=== PATIENT | female | born 1985 | race Caucasian/White ===

== ENCOUNTER 2018-08-14 09:48 | Day surgery (SDC) | payer BC ==
[2018-08-11 08:58] LABS: MICROSCOPIC NOT IND
[2018-08-11 09:04] LABS: BASOPHILS # (AUTO) 0.03 x10^3/uL (0-0.1); BASOPHILS % (AUTO) 0 % (0-1); EOSINOPHILS % (AUTO) 1 % (1-7); LYMPHOCYTES # (AUTO) 2.44 x10^3/uL (1-3.4); LYMPHOCYTES % (AUTO) 29 % (22-44); MD NO; MEAN CORPUSCULAR HEMOGLOBIN 30.5 pg (27.0-34.8); MEAN CORPUSCULAR VOLUME 89.6 fL (80-100); MEAN PLATELET VOLUME 7.8 fL (7.4-10.4); MONOCYTES # (AUTO) 0.34 x10^3/uL (0.2-0.8); MONOCYTES % (AUTO) 4 % (2-9); NEUTROPHILS # (AUTO) 5.44 x10^3/uL (1.8-6.8); NEUTROPHILS % (AUTO) 65 % (42-75); PLATELET COUNT 285 x10^3/uL (130-400); RED BLOOD COUNT 4.54 x10^6/uL (3.82-5.3); RED CELL DISTRIBUTION WIDTH 14.5 % (9.6-15.2)
[2018-08-11 09:17] LABS: CULTURE INDICATED? NO
[~2018-08-14] VITALS: Ht 162.6 cm; Wt 56.9 kg
[~2018-08-14 09:48] MED LIST: BIOT25005 PO; BUPIVACAINE/PF 0.25% ONE; BUTA1CAP57 PO; CEFD300C37 PO; EPINEPHRINE 1 MG/ML, 1ML ONE; KETO30VI27 IV; LEVO75TA PO; METH500T97 PO; NORE1TAB25 PO; OXYC20TA42 PO; OXYC5CAP2 PO; OXYC5TAB3 PO; PANT40TA3 PO; POLY17PO5 PO; PROM25TA10 PO
[2018-08-14 10:29] VITALS: BP 116/83
[2018-08-14] MEDS ORDERED: ACETAMINOPHEN 500 MG TABLET PO ONE (10:30)
[2018-08-14] MEDS ORDERED: GABAPENTIN 300 MG CAPSULE PO ONE (10:30)
[2018-08-14] MEDS ORDERED: FENTANYL PF 250 MCG/5ML ONE (12:11)
[2018-08-14] MEDS ORDERED: MIDAZOLAM 1 MG/ML, 2ML ONE (12:11)
[2018-08-14] MEDS ORDERED: LIDOCAINE-MPF 2% ,5ML ONE (12:12)
[2018-08-14] MEDS ORDERED: PROPOFOL 10 MG/ML, 20ML ONE (12:12)
[2018-08-14] MEDS ORDERED: ROCURONIUM 10MG/ML,5ML ONE (12:13)
[2018-08-14] MEDS ORDERED: HYDROmorphone 2 MG/ML, 1ML IVPush PRN (13:00)
[2018-08-14] MEDS ORDERED: OXYcodone 5 MG/5 ML ORAL.SOL UDC PO PRN (13:00)
[2018-08-14] MEDS ORDERED: HALOPERIDOL 5 MG/ML IV PRN (13:00)
[2018-08-14] MEDS ORDERED: PROMETHAZINE 25 MG/ML, 1ML IV PRN (13:00)
[2018-08-14] MEDS ORDERED: LORazepam 2 MG/ML, 1ML IVPush PRN (13:00)
[2018-08-14] MEDS ORDERED: MEPERIDINE/PF 25MG/0.5ML IVPush PRN (13:00)
[2018-08-14] MEDS ORDERED: hydrALAzine 20 MG/ML, 1ML IV PRN (13:00)
[2018-08-14] MEDS ORDERED: ONDANSETRON 2MG/ML, 2ML ONE (13:11)
[2018-08-14] MEDS ORDERED: CEFOTETAN PMX 1GM/50ML 50 ML ONE (13:11)
[2018-08-14] MEDS ORDERED: DEXAMETHASONE 4 MG/ML, 1ML ONE (13:11)
[2018-08-14] MEDS: FENTANYL PF 100 MCG/2ML IV PRN ×2 (13:55→14:03)
[2018-08-14] MEDS ORDERED: FENTANYL PF 100 MCG/2ML ONE (13:55)
[2018-08-14] MEDS ORDERED: OXYcodone 5 MG/5 ML ORAL.SOL UDC ONE (13:55)
[2018-08-14] MEDS ORDERED: LORazepam 2 MG/ML, 1ML ONE (14:02)
[2018-08-14] MEDS ORDERED: LACTATED RINGERS 1,000 ML IV SCH (15:33)
== END 2018-08-14 18:05 | disposition home or self-care (01) ==
LOC: OUT 09:48
PROVIDERS: ATTEND Obstetrics & Gynecology
DX: Z30.2 Encounter for sterilization (principal); E03.9 Hypothyroidism, unspecified; G43.909 Migraine, unspecified, not intractable, without status migrainosus; Z98.890 Other specified postprocedural states; Z88.8 Allergy status to other drugs, medicaments and biological substances; Z79.01 Long term (current) use of anticoagulants; Z79.899 Other long term (current) drug therapy
CPT/HCPCS: 36415; 58670; 81003; 84702; 85025; 88302; J0171; J1100; J2060; J2250; J2405; J2704; J3010; J3490; J7120

== ENCOUNTER → 2020-08-12 | Outpatient (CLI) | payer BC ==
[~2020-08-12] MED LIST changes: -BUPIVACAINE/PF 0.25% ONE; -EPINEPHRINE 1 MG/ML, 1ML ONE; +LACT1CAP35 PO
[2020-08-12 14:57] LABS: MICROSCOPIC NOT IND
[2020-08-12 15:00] LABS: BASOPHILS % (AUTO) 0 % (0-1); EOSINOPHILS % (AUTO) 1 % (1-7); LYMPHOCYTES % (AUTO) 25 % (22-44); MEAN CORPUSCULAR HEMOGLOBIN 28.8 pg (27.0-34.8); MEAN CORPUSCULAR HGB CONC 33.1 g/dL (32.4-35.8); MEAN PLATELET VOLUME 7.9 fL (7.4-10.4); MONOCYTES % (AUTO) 4 % (2-9); NEUTROPHILS % (AUTO) 71 % (42-75); PLATELET COUNT 297 x10^3/uL (130-400); RED BLOOD COUNT 4.32 x10^6/uL (3.82-5.3); RED CELL DISTRIBUTION WIDTH 15.1 % (9.6-15.2)
[2020-08-12 15:02] LABS: MD NO
[2020-08-12 15:10] LABS: ANION GAP 6 mmol/L (5-15); CALCIUM 9.2 mg/dL (8.5-10.1); CHLORIDE 107 mmol/L (98-107)
[2020-08-12 15:15] LABS: CREATININE 0.94 mg/dL (0.55-1.02)
== END | disposition home or self-care (01) ==
LOC: STAR 13:43
PROVIDERS: ATTEND Obstetrics & Gynecology
DX: Z01.812 Encounter for preprocedural laboratory examination (principal); Z20.828 Contact with and (suspected) exposure to other viral communicable diseases; N80.0 Endometriosis of uterus; R10.2 Pelvic and perineal pain; N92.0 Excessive and frequent menstruation with regular cycle
CPT/HCPCS: 80048; 81003; 84702; 85025; 87635

== ENCOUNTER 2020-08-18 08:51 | Day surgery (SDC) | payer BC ==
[~2020-08-18] VITALS: Ht 162.6 cm; Wt 59.1 kg
[~2020-08-18 08:51] MED LIST changes: -OXYC5TAB3 PO; +OXYC5TAB98 PO
[2020-08-18] MEDS ORDERED: CHLORHEXIDINE 15 ML UDC MM STA (09:13)
[2020-08-18] MEDS ORDERED: ACETAMINOPHEN 500 MG TABLET PO ONE (09:30)
[2020-08-18] MEDS ORDERED: LACTATED RINGERS 1,000 ML IV SCH (09:30)
[2020-08-18] MEDS ORDERED: GABAPENTIN 300 MG CAPSULE PO ONE (09:30)
[2020-08-18 09:36] VITALS: BP 121/75
[2020-08-18] MEDS ORDERED: BUPIVACAINE/PF 0.25% ONE (10:05)
[2020-08-18] MEDS ORDERED: FENTANYL PF 250 MCG/5ML ONE (10:12)
[2020-08-18] MEDS ORDERED: MIDAZOLAM 1 MG/ML, 2ML ONE (10:12)
[2020-08-18 10:16] LABS: HCG UR SG 1.009 (1.003-1.030)
[2020-08-18] MEDS ORDERED: PROPOFOL 100 ML ONE (10:23)
[2020-08-18] MEDS ORDERED: DEXAMETHASONE 4 MG/ML, 1ML ONE (10:25)
[2020-08-18] MEDS ORDERED: PROPOFOL 10 MG/ML, 20ML ONE (11:19)
[2020-08-18] MEDS ORDERED: ROCURONIUM 10MG/ML,5ML ONE (11:19)
[2020-08-18] MEDS ORDERED: CEFAZOLIN 1,000 MG ONE (11:19)
[2020-08-18] MEDS ORDERED: SUCCINYLCHOLINE 20 MG/ML, 10ML ONE (11:19)
[2020-08-18] MEDS ORDERED: GLYCOPYRROLATE 0.2MG/1ML, 5ML ONE ×2 (11:19)
[2020-08-18] MEDS ORDERED: NEOSTIGMINE 1 MG/ML, 10ML ONE ×2 (11:19)
[2020-08-18] MEDS ORDERED: ONDANSETRON 2MG/ML, 2ML ONE (11:19)
[2020-08-18] MEDS ORDERED: LIDOCAINE-MPF 2% ,5ML ONE ×3 (11:19→11:34)
[2020-08-18] MEDS ORDERED: OXYcodone 5 MG/5 ML ORAL.SOL UDC PO PRN (11:30)
[2020-08-18] MEDS ORDERED: METHOCARBAMOL 1,000 MG in DEXTROSE 5% 100 ML IV PRN (11:30)
[2020-08-18] MEDS ORDERED: ONDANSETRON 2MG/ML, 2ML IVPush PRN (11:30)
[2020-08-18] MEDS ORDERED: LORazepam 2 MG/ML, 1ML IVPush PRN (11:30)
[2020-08-18] MEDS ORDERED: HYDROmorphone 1 MG/ML, 1ML INJ IVPush PRN (11:30)
[2020-08-18] MEDS ORDERED: MEPERIDINE/PF 25MG/0.5ML IVPush PRN (11:30)
[2020-08-18] MEDS ORDERED: PROMETHAZINE 25 MG/ML, 1ML IVPush PRN (11:30)
[2020-08-18] MEDS ORDERED: PROMETHAZINE 25 MG SUPP PR PRN (11:30)
[2020-08-18] MEDS ORDERED: FLUORESCEIN SODIUM 500 MG/5 ML ONE (11:40)
[2020-08-18] MEDS ORDERED: OXYcodone 5 MG/5 ML ORAL.SOL UDC ONE (12:44)
[2020-08-18] MEDS ORDERED: FENTANYL PF 100 MCG/2ML ONE ×2 (12:44→13:10)
[2020-08-18] MEDS: FENTANYL PF 100 MCG/2ML IV PRN ×3 (12:46→13:11)
== END 2020-08-18 14:50 | disposition home or self-care (01) ==
LOC: OUT 08:51
PROVIDERS: ATTEND Obstetrics & Gynecology
DX: N80.0 Endometriosis of uterus (principal); N83.291 Other ovarian cyst, right side; E03.9 Hypothyroidism, unspecified; G47.00 Insomnia, unspecified; G43.909 Migraine, unspecified, not intractable, without status migrainosus; Z88.8 Allergy status to other drugs, medicaments and biological substances; Z98.890 Other specified postprocedural states; Z79.899 Other long term (current) drug therapy; Z72.89 Other problems related to lifestyle
CPT/HCPCS: 58550; 81025; 88305; 88307; J0690; J1100; J2250; J2405; J2704; J2710; J3010; J7120; J0330